=== PATIENT | female | born 1945 | race Caucasian/White ===

== ENCOUNTER → 2016-07-25 | Outpatient (CLI) | payer MEDICARE ==
[~2016-07-25] MED LIST: DEXA10PO2 PO; FAMO-79 PO; FAMO20TA7 PO; HYDR-3240 PO; LEVE500T53 PO; SULF1TAB3 PO
== END | disposition home or self-care (01) ==
LOC: WOUND 08:38
PROVIDERS: ATTEND Physician Assistant
DX: S51.802D Unspecified open wound of left forearm, subsequent encounter (principal); C71.3 Malignant neoplasm of parietal lobe; Z85.3 Personal history of malignant neoplasm of breast; Z90.710 Acquired absence of both cervix and uterus; Z87.891 Personal history of nicotine dependence; Z85.841 Personal history of malignant neoplasm of brain; X58.XXXD Exposure to other specified factors, subsequent encounter
CPT/HCPCS: G0463; WOU0463

== ENCOUNTER → 2016-07-29 | Outpatient (CLI) | payer MEDICARE | END | disposition home or self-care (01) | LOC: WOUND 14:38 | PROVIDERS: ATTEND Nurse Practitioner Family | DX: S51.812D Laceration without foreign body of left forearm, subsequent encounter (principal); C71.3 Malignant neoplasm of parietal lobe; Z90.710 Acquired absence of both cervix and uterus; Z85.841 Personal history of malignant neoplasm of brain; Z85.3 Personal history of malignant neoplasm of breast; Z87.891 Personal history of nicotine dependence; X58.XXXD Exposure to other specified factors, subsequent encounter | CPT/HCPCS: G0463; WOU0463 ==

== ENCOUNTER → 2016-08-05 | Outpatient (CLI) | payer MEDICARE | END | disposition home or self-care (01) | LOC: WOUND 14:04 | PROVIDERS: ATTEND Internal Medicine | DX: S81.801D Unspecified open wound, right lower leg, subsequent encounter (principal); Z85.3 Personal history of malignant neoplasm of breast; Z87.891 Personal history of nicotine dependence; X58.XXXD Exposure to other specified factors, subsequent encounter | CPT/HCPCS: 97597; 97598 ==

== ENCOUNTER → 2016-08-12 | Outpatient (CLI) | payer MEDICARE | END | disposition home or self-care (01) | LOC: WOUND 14:00 | PROVIDERS: ATTEND Internal Medicine Infectious Disease | DX: S81.801A Unspecified open wound, right lower leg, initial encounter (principal); Z85.3 Personal history of malignant neoplasm of breast; Z87.891 Personal history of nicotine dependence; X58.XXXA Exposure to other specified factors, initial encounter; Y93.89 Activity, other specified; Y92.89 Other specified places as the place of occurrence of the external cause; Y99.8 Other external cause status | CPT/HCPCS: G0463; WOU0463 ==

== ENCOUNTER → 2016-09-08 | Outpatient (CLI) | payer MEDICARE | END | disposition home or self-care (01) | LOC: WOUND 09:30 | PROVIDERS: ATTEND Physician Assistant | DX: S41.112A Laceration without foreign body of left upper arm, initial encounter (principal); Z85.3 Personal history of malignant neoplasm of breast; Z87.891 Personal history of nicotine dependence; Z90.710 Acquired absence of both cervix and uterus; Z85.841 Personal history of malignant neoplasm of brain; X58.XXXA Exposure to other specified factors, initial encounter; Y93.89 Activity, other specified; Y92.89 Other specified places as the place of occurrence of the external cause; Y99.8 Other external cause status | CPT/HCPCS: 97597 ==

== ENCOUNTER → 2016-09-15 | Outpatient (CLI) | payer MEDICARE | END | disposition home or self-care (01) | LOC: WOUND 10:04 | PROVIDERS: ATTEND Physician Assistant | DX: S41.112D Laceration without foreign body of left upper arm, subsequent encounter (principal); Z85.3 Personal history of malignant neoplasm of breast; Z85.841 Personal history of malignant neoplasm of brain; Z87.891 Personal history of nicotine dependence; Z90.710 Acquired absence of both cervix and uterus; X58.XXXD Exposure to other specified factors, subsequent encounter; Y92.89 Other specified places as the place of occurrence of the external cause; Y99.8 Other external cause status | CPT/HCPCS: 97597 ==

== ENCOUNTER → 2016-09-18 | Outpatient (CLI) | payer MEDICARE ==
[~2016-09-18] MED LIST changes: +GADOBUTROL 7.5 MMOL/7.5 ML VIAL ONE
== END | disposition home or self-care (01) ==
LOC: CFH 09:49
PROVIDERS: ATTEND Internal Medicine Hematology & Oncology
DX: C71.4 Malignant neoplasm of occipital lobe (principal); R90.82 White matter disease, unspecified; Z98.890 Other specified postprocedural states
CPT/HCPCS: 70553; A9585

== ENCOUNTER → 2016-09-22 | Outpatient (CLI) | payer MEDICARE ==
[~2016-09-22] MED LIST changes: -GADOBUTROL 7.5 MMOL/7.5 ML VIAL ONE
== END | disposition home or self-care (01) ==
LOC: WOUND 11:07
PROVIDERS: ATTEND Physician Assistant
DX: S41.111D Laceration without foreign body of right upper arm, subsequent encounter (principal); S41.112D Laceration without foreign body of left upper arm, subsequent encounter; C71.3 Malignant neoplasm of parietal lobe; K21.9 Gastro-esophageal reflux disease without esophagitis; Z51.11 Encounter for antineoplastic chemotherapy; Z85.3 Personal history of malignant neoplasm of breast; Z90.710 Acquired absence of both cervix and uterus; Z87.891 Personal history of nicotine dependence; X58.XXXD Exposure to other specified factors, subsequent encounter
CPT/HCPCS: 97597; 97598

== ENCOUNTER → 2016-09-29 | Outpatient (CLI) | payer MEDICARE | END | disposition home or self-care (01) | LOC: WOUND 11:07 | PROVIDERS: ATTEND Physician Assistant | DX: S41.111D Laceration without foreign body of right upper arm, subsequent encounter (principal); S41.112D Laceration without foreign body of left upper arm, subsequent encounter; K21.9 Gastro-esophageal reflux disease without esophagitis; Z85.3 Personal history of malignant neoplasm of breast; Z90.710 Acquired absence of both cervix and uterus; Z87.891 Personal history of nicotine dependence; X58.XXXD Exposure to other specified factors, subsequent encounter | CPT/HCPCS: G0463; WOU0463 ==

== ENCOUNTER → 2016-10-06 | Outpatient (CLI) | payer MEDICARE | END | disposition home or self-care (01) | LOC: WOUND 10:14 | PROVIDERS: ATTEND Physician Assistant | DX: S41.111D Laceration without foreign body of right upper arm, subsequent encounter (principal); S41.112D Laceration without foreign body of left upper arm, subsequent encounter; C71.3 Malignant neoplasm of parietal lobe; Z51.11 Encounter for antineoplastic chemotherapy; Z90.710 Acquired absence of both cervix and uterus; Z87.891 Personal history of nicotine dependence; X58.XXXD Exposure to other specified factors, subsequent encounter | CPT/HCPCS: 97597 ==

== ENCOUNTER → 2016-10-13 | Outpatient (CLI) | payer MEDICARE | END | disposition home or self-care (01) | LOC: WOUND 11:05 | PROVIDERS: ATTEND Physician Assistant | DX: S41.112D Laceration without foreign body of left upper arm, subsequent encounter (principal); S41.111D Laceration without foreign body of right upper arm, subsequent encounter; K21.9 Gastro-esophageal reflux disease without esophagitis; Z87.891 Personal history of nicotine dependence; Z85.3 Personal history of malignant neoplasm of breast; Z85.841 Personal history of malignant neoplasm of brain; Z90.710 Acquired absence of both cervix and uterus; X58.XXXD Exposure to other specified factors, subsequent encounter | CPT/HCPCS: G0463; WOU0463 ==

== ENCOUNTER → 2016-10-20 | Outpatient (CLI) | payer MEDICARE | END | disposition home or self-care (01) | LOC: WOUND 10:00 | PROVIDERS: ATTEND Physician Assistant | DX: S41.111D Laceration without foreign body of right upper arm, subsequent encounter (principal); S41.112D Laceration without foreign body of left upper arm, subsequent encounter; K21.9 Gastro-esophageal reflux disease without esophagitis; Z85.3 Personal history of malignant neoplasm of breast; Z85.841 Personal history of malignant neoplasm of brain; Z87.891 Personal history of nicotine dependence; Z90.710 Acquired absence of both cervix and uterus; X58.XXXD Exposure to other specified factors, subsequent encounter | CPT/HCPCS: G0463; WOU0463 ==

== ENCOUNTER → 2016-10-30 | Outpatient (CLI) | payer MEDICARE ==
[~2016-10-30] MED LIST changes: +GADOBUTROL 7.5 MMOL/7.5 ML VIAL ONE; +SULF-169 PO; -SULF1TAB3 PO
== END | disposition home or self-care (01) ==
LOC: CFH 12:32
PROVIDERS: ATTEND Internal Medicine Hematology & Oncology
DX: M51.36 Other intervertebral disc degeneration, lumbar region (principal); M47.897 Other spondylosis, lumbosacral region; M51.27 Other intervertebral disc displacement, lumbosacral region; M48.07 Spinal stenosis, lumbosacral region; M48.54XA Collapsed vertebra, not elsewhere classified, thoracic region, initial encounter for fracture; M48.56XA Collapsed vertebra, not elsewhere classified, lumbar region, initial encounter for fracture; C71.4 Malignant neoplasm of occipital lobe
CPT/HCPCS: 72157; 72158; A9585

== ENCOUNTER → 2016-11-12 | Outpatient (CLI) | payer MEDICARE ==
[~2016-11-12] MED LIST changes: +FURO-93 PO; -GADOBUTROL 7.5 MMOL/7.5 ML VIAL ONE; +MORP-59 PO
== END | disposition home or self-care (01) ==
LOC: CFH 12:32
PROVIDERS: ATTEND Internal Medicine Hematology & Oncology
DX: C71.4 Malignant neoplasm of occipital lobe (principal); R90.82 White matter disease, unspecified; Z98.890 Other specified postprocedural states
CPT/HCPCS: 70553